=== PATIENT | female | born 1940 | race Caucasian/White ===

== ENCOUNTER 2017-08-09 21:10 | Emergency (ER) | payer MEDICARE, OTHER ==
[~2017-08-09] VITALS: Ht 162.6 cm; Wt 50.0 kg
[~2017-08-09 21:10] MED LIST: CHOL200047 PO; CYAN500 PO; LVCR25100 PO; METH2.5T PO; NEUDEXTA PO; OMEP20TA86 PO; RIVA1PAT3 TD
[2017-08-09 21:18] VITALS: BP 99/66; PULSE 88; RESP 19; O2SAT 99
--- NOTE | 2017-08-09 21:34 | ED.REPORT ---
HPI-Dyspnea / Wheezing Date of Service Aug 09, 2017 ED Provider: Marva Villalobos MD Pt is a 76 year old female with a hx of PSP (progressive supernuclear palsy), HTN, and arthritis presenting to the ED complaining of intermittent trouble swallowing onset in the last week. Her reports that when they went to bed last night, she had some trouble breathing due to trouble swallowing but when he sat her up she was okay. Today, when they were watching TV the pt was gulping and having trouble swallowing. Her states that the pt has trouble drinking liquids, and aspirates water quite frequently, and he is concerned that that may be the cause of her symptoms. He states that this has been gradually worsening in the last 60 days. Denies any actual SOB, fever, chills, nausea, vomiting, headache, chest pain, abdominal pain. Nursing Notes Stated Complaint: DIFFICULTY BREATHING Chief Complaint: Respiratory Complaints Nursing Notes Reviewed: Yes Allergies: Coded Allergies: No Known Allergies (Unverified Allergy, Unknown, 12/06/14) Scheduled ([Neudexta]) Unknown Dose PO BID Carbidopa/Levodopa 25-100 mg (Sinemet 25-100 mg) 1 Ea Tab 1 EA PO TID Cyanocobalamin (Vitamin B12) 1,000 Mcg Tablet 1,000 MCG PO DAILY Methotrexate Sodium (Methotrexate) 2.5 Mg Tablet 2.5 MG PO 1x/week Omeprazole (Omeprazole) 20 Mg Tablet.dr 20 MG PO DAILY Miscellaneous Medications Cholecalciferol (Vitamin D3) (Vitamin D3) 2,000 Unit Capsule 2,000 UNIT PO Rivastigmine Patch (Exelon Patch) 1 Each Patch.td24 1 EACH TD General Time Seen by MD: 21:33 Chief Complaint Shortness of breath Hx Obtained From: Patient, Spouse Arrived By: Wheelchair Sudden in Onset?: Yes Onset Occurred: Yesterday Symptom Duration: Intermittent Recent Healthcare: No recent doctor visit, No recent hospitalization Similar Sx Previous: Yes Past Medical History Past Medical History 1. Parkinson's diagnosed, also diagnosed with progressive supranuclear palsy, unsure if patient has both diagnoses 2. Hypertension. 3. GERD. 4. Mild dementia. 5. Arthritis. Past Surgical History denies Smoking History Former Smoker Social History Alcohol Use: 1-3 per day Drug Use: Denies drug use Other Social History: Occupation lives with Ambulatory Status Wheelchair Review of Systems Reports trouble swallowing Constitutional: Denies: Chills, Fever Respiratory: Denies: Shortness of breath Cardiovascular: Denies: Chest pain Complete sys rev & neg: except as marked. GI: Denies: Abdominal pain, Nausea, Vomiting Neurologic: Denies: Headache Physical Exam Initial Vital Signs Vital Signs (First) Date Time Temp Pulse Resp B/P Pulse Ox O2 Delivery O2 Flow Rate FiO2 08/09/17 21:18 36.3 88 19 99/66 99 Room Air Initial VS: Reviewed, Vital signs normal Head / Eyes: Atraumatic, Normocephalic, PERRL ENT: Mucous membranes moist, Conjunctiva normal, No scleral icterus Abdomen / GI: Soft, Non-tender, No guarding, No rebound, No distention Extremities: Vascular intact, Neuro intact, No swelling, No tenderness Skin: Warm, Dry, No cyanosis Neurologic: Alert, Oriented, Nonfocal Psychiatric: Mood/affect normal, Behavior normal, Normal thought content General/Constitutional: Awake, Alert Neck: Atraumatic, Supple, No meningismus Respiratory / Chest: Atraumatic Rales in the right base Cardiovascular: Heart rate NL, Regular rhythm, Heart sounds NL Interpretation & Diagnostics Lab Results Interpretation Result Diagram: 08/09/175 08/09/17 2235 Test 08/09/17 22:35 White Blood Count 7.5th/mm3 (3.8-10.1) Red Blood Count 3.88mil/mm3 (3.90-5.20) Hemoglobin 12.6g/dL (12.0-15.6) Hematocrit 38.3% (35.0-46.0) Mean Corpuscular Volume 98.7fL (81-100) Mean Corpuscular Hemoglobin 32.5pg (27.0-35.0) Mean Corpuscular Hemoglobin Concent 32.9% (32.0-37.0) Red Cell Distribution Width 13.0% (12.3-15.4) Platelet Count 155bil/L (150-400) Neutrophils (%) (Auto) 67.8% (40-74) Lymphocytes (%) (Auto) 18.1% (14-46) Monocytes (%) (Auto) 10.9% (4-12) Eosinophils (%) (Auto) 2.8% (0-5) Basophils (%) (Auto) 0.3% (0-3) Sodium Level 143mEq/L (134-144) Potassium Level 4.4mEq/L (3.5-5.2) Chloride Level 103mEq/L (97-108) Carbon Dioxide Level 28mmol/L (18-29) Blood Urea Nitrogen 15mg/dL (8-27) Creatinine 0.85mg/dL (0.57-1.00) Estimat Glomerular Filtration Rate 93mL/min (>59) Glucose Level 107mg/dL (60-99) Calcium Level 9.2mg/dL (8.5-10.1) Hold Diego Top Tube Received (Received) X-Ray Chest Interpretation Chest Xray Interpretation: Negative View: AP & lat Interpretation / Wet Read by: Wet read ED physician Re-Eval/Medical Decision Med Decision/Clinical Course The patient's neurologic condition has caused her to have progressive worsening dysphagia. Her says it's been much worse over the past 2 months. From his description she appears to be having some difficulty swallowing her secretions at times and she confirms this when questioned. The patient has some rales to the right base which could be aspiration but she does not have any respiratory distress or complain of any difficulty. The patient's chest x-ray is normal as well as her CBC so she will not be treated at this time. If she has progression of symptoms she should return. According to the this is been ongoing for several months. Re-Evaluation/Progress : Time of Eval: 23:12 Patient Status: Condition improved Re-Evaluation/Progress Note: Informed of x ray results and plan for discharge. Discussed plan for follow up with a swallow test. Counseled Regarding: Diagnosis, Lab results, Need for follow-up, When/why to return to ED Discharge & Departure Impression: Primary Impression: Dysphagia Dysphagia type: unspecified Qualified Code: R13.10 - Dysphagia, unspecified Additional Impression: Chronic pulmonary aspiration Encounter type: initial encounter Qualified Code: T17.908A - Unspecified foreign body in respiratory tract, part unspecified causing other injury, initial encounter Disposition: Home Discharge Condition All VS Reviewed: Yes Condition: Improved Patient Instructions: Chronic Dysphagia (ED) Additional Instructions: The x ray done today did not show any sign of pneumonia. I would recommend getting a swallow test done because it may not be safe to continue aspirating liquids as she drinks them. Follow up with her primary care doctor in the next week to set this up and to discuss the option of a possible feeding tube. You could also speak to her primary care doctor about possibly getting a suction for when she is having trouble swallowing saliva. Return to the ER for any new or worsening symptoms such as fever, chills, nausea , vomiting, diarrhea, shortness of breath, numbness, weakness, or chest pain. Referrals: OTHER,PHYSICIAN (PCP) Serafin Alves MD, Ryan S MD Scribe Attestation Portions of this note were transcribed by Jayde Coles. I, Dr. Villalobos personally performed the history, physical exam and medical decision-making; I reviewed and confirmed the accuracy of the information in the transcribed note. Signed by : Sandie Barton, 08/09/2017. copies to: Serafin Alves MD; Jameosn Holloway MD, Jena M MD Aug 09, 2017 21:34 JAYDE COLES Aug 09, 2017 21:44
[2017-08-09 22:35] VITALS: PULSE 76; RESP 16; O2SAT 100
[2017-08-09 22:46] LABS: BASOPHILS % (AUTO) 0.3 % (0-3); EOSINOPHILS % (AUTO) 2.8 % (0-5); MONOCYTES % (AUTO) 10.9 % (4-12); Mean Corpuscular Hemoglobin 32.5 pg (27.0-35.0); Mean Corpuscular Volume 98.7 fL (81-100); NEUTROPHILS % (AUTO) 67.8 % (40-74); Platelet Count 155 bil/L (150-400)
--- NOTE | 2017-08-10 09:48 | DRSVH ---
PROCEDURE: X-RAY CHEST, TWO VIEWS ([id number]) INDICATIONS: rales to right base TECHNIQUE: 2 views of the chest were acquired. COMPARISON: [facility], [place], CHEST 2VW, 12/14/2013, 13:12. FINDINGS: Surgical changes and devices: None. Lungs and pleura: No pleural effusions or pneumothorax. Lungs are clear. Mediastinum: Mediastinal contours are normal. Heart size is normal. Bones and chest wall: No new suspicious bony abnormalities. Again noted are upper lumbar wedge comp ression fractures, chronic in appearance. Soft tissues appear unremarkable. IMPRESSION: Lungs appear normal for age. Source of rales is not seen. Chronic upper lumbar wedge co mpression fractures again seen. Dictated by: Hoang Kelly M.D. on 08/10/2017 at 9:46 Approved by: Hoang Kelly M.D. on 08/10/2017 at 9:46
== END 2017-08-09 23:31 | disposition home or self-care (01) ==
LOC: SED 21:10
DX: R13.10 Dysphagia, unspecified (principal); T17.818A Gastric contents in other parts of respiratory tract causing other injury, initial encounter; Y93.89 Activity, other specified; Y92.89 Other specified places as the place of occurrence of the external cause; Y99.8 Other external cause status; I10 Essential (primary) hypertension; K21.9 Gastro-esophageal reflux disease without esophagitis; G23.1 Progressive supranuclear ophthalmoplegia [Steele-Richardson-Olszewski]; M19.90 Unspecified osteoarthritis, unspecified site; F03.90 Unspecified dementia, unspecified severity, without behavioral disturbance, psychotic disturbance, mood disturbance, and anxiety; Z87.891 Personal history of nicotine dependence